=== PATIENT | male | born 1945 | race Caucasian/White ===

== ENCOUNTER → 2016-04-11 | Outpatient (CLI) | payer MEDICARE, OTHER ==
[~2016-04-11] MED LIST: AML2.5T GT; CATHETER FLUSH 10 ML SYR IV PRN; ENLP10T GT; HYDR25TA4 PO; POTA2TAB15 PO; SIMV20TA3 PO
[2016-04-11 08:02] VITALS: BP 150/92
--- NOTE | 2016-04-12 08:35 | STRESS TEST ---
PROCEDURE PHYSICIAN: ALBERTO BELLO DATE OF PROCEDURE: 04/11/2016 NUCLEAR MYOVIEW REPORT: REFERRING PHYSICIAN: Dr. Milton Prasad. IN SUMMARY: The patient was injected with 10.67 mCi of technetium 99 Myoview and the resting images were obtained. With peak stress level, 31.5 mCi of technetium 99 Myoview were injected and the stress images were obtained. The stress test was supervised by Dr. Prasad. The resting and stress images were reviewed and compared in the short axis, horizontal long axis, and vertical long axis views. Review of the images showed diaphragmatic attenuation with fixed defect involving in the mid to apical inferior wall and inferolateral wall. Mild area of reversibility at the inferolateral wall. SSS is 11, SDS 3, TID value 1. On the gated images, the left ventricle appeared to be normal size with normal contractility. Calculated ejection fraction 61%. The inferior wall is nicolle normally. IN CONCLUSION: 1. Diaphragmatic attenuation with fixed defect at the inferior wall and inferolateral wall, probably due to the diaphragmatic attenuation. No significant ischemia was noted. 2. Normal left ventricular size with normal contractility, inferior wall is nicolle normally. Calculated ejection fraction 61%. 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
== END ==
LOC: CARD 06:42
PROVIDERS: ATTEND Internal Medicine
DX: I25.10 Atherosclerotic heart disease of native coronary artery without angina pectoris (principal)
CPT/HCPCS: 78452; 93017

== ENCOUNTER → 2021-11-04 | Outpatient (CLI) | payer MEDICARE, OTHER ==
[~2021-11-04] MED LIST changes: -CATHETER FLUSH 10 ML SYR IV PRN
== END ==
LOC: WOUNDCARE 10:40
PROVIDERS: ATTEND Family Medicine
DX: S61.412A Laceration without foreign body of left hand, initial encounter (principal); W55.22XA Struck by cow, initial encounter; I10 Essential (primary) hypertension; Z22.322 Carrier or suspected carrier of Methicillin resistant Staphylococcus aureus
CPT/HCPCS: 11042; A6197; G0463

== ENCOUNTER → 2021-11-10 | Outpatient (CLI) | payer MEDICARE, OTHER | LOC: WOUNDCARE 10:48 | PROVIDERS: ATTEND Family Medicine | DX: S61.412A Laceration without foreign body of left hand, initial encounter (principal); I96 Gangrene, not elsewhere classified; I10 Essential (primary) hypertension; W55.22XA Struck by cow, initial encounter; Z22.322 Carrier or suspected carrier of Methicillin resistant Staphylococcus aureus | CPT/HCPCS: 99213 ==

== ENCOUNTER → 2021-11-18 | Outpatient (CLI) | payer MEDICARE, OTHER | LOC: WOUNDCARE 12:49 | PROVIDERS: ATTEND Family Medicine | DX: S61.412A Laceration without foreign body of left hand, initial encounter (principal); I10 Essential (primary) hypertension; W55.22XA Struck by cow, initial encounter; Z22.322 Carrier or suspected carrier of Methicillin resistant Staphylococcus aureus; I96 Gangrene, not elsewhere classified | CPT/HCPCS: 11042; G0463 ==

== ENCOUNTER → 2021-11-23 | Outpatient (CLI) | payer MEDICARE, OTHER | LOC: WOUNDCARE 09:57 | PROVIDERS: ATTEND Family Medicine | DX: S61.412A Laceration without foreign body of left hand, initial encounter (principal); I10 Essential (primary) hypertension; W55.22XA Struck by cow, initial encounter; Z22.322 Carrier or suspected carrier of Methicillin resistant Staphylococcus aureus | CPT/HCPCS: 99212 ==